=== PATIENT | female | born 1990 | race Caucasian/White ===

== ENCOUNTER 2017-12-26 22:59 | Emergency (ER) | payer OTHER ==
[~2017-12-26] VITALS: Ht 165.1 cm; Wt 88.1 kg
[~2017-12-26 22:59] MED LIST: Micronor,Nor-Q-D,Err PO; Motrin PO; Percocet 5/325,Endoc PO; Tylenol Extra Streng PO
[2017-12-26 23:37] LABS: HEMOGLOBIN 14.4 G/DL (11.9-15.5); MCH 31.9 PG (29.0-34.0); MCHC 34.3 G/DL (30.0-36.0); MCV 92.9 FL (83-99); PLATELET COUNT 171 K/uL (156-360); RBC DIS.WIDTH-CV 12.4 % (11.8-14.6); RBC DIS.WIDTH-SD 42.6 % (39-53); RED BLOOD COUNT 4.52 M/uL (3.80-5.20); WHITE BLOOD COUNT 7.4 K/uL (4.1-10.2)
[2017-12-26 23:49] LABS: ALBUMIN 4.4 g/dL (3.2-4.8)
[2017-12-26 23:50] LABS: CHLORIDE 110 mEq/L (99-109); POTASSIUM 3.6 mEq/L (3.7-5.4); SODIUM 142 mEq/L (136-147)
[2017-12-26 23:52] LABS: GLUCOSE 117 mg/dL (70-99); TOTAL PROTEIN 6.9 g/dL (6.4-8.3)
[2017-12-26 23:54] LABS: TOTAL BILIRUBIN 0.3 mg/dL (0.0-1.0)
[2017-12-26 23:55] LABS: ALKALINE PHOSPHATASE 58 IU/L (3-129)
[2017-12-26 23:56] LABS: CREATININE 0.7 mg/dL (0.6-1.3); GFR ESTIMATE (CALCULATED) > 59 mL/min/
[2017-12-26 23:57] LABS: AST (GOT) 15 IU/L (2-34); UREA NITROGEN (BUN) 8 mg/dL (9-23)
[2017-12-26 23:58] LABS: ALT (GPT) 20 IU/L (3-49)
[2017-12-27 00:08] LABS: QUANTITATIVE HCG < 4.0 MIU/ML
[2017-12-27 02:23] VITALS: BP 105/85
[2017-12-27 02:23] LABS: APPEARANCE CLEAR ((CLEAR)); BILIRUBIN NEGATIVE; BLOOD MODERATE; COLOR YELLOW ((YELLOW)); GLUCOSE (STRIP) NEGATIVE; KETONES NEGATIVE; LEUKOCYTES NEGATIVE; NITRITE NEGATIVE; PROTEIN (STRIP) NEGATIVE; SPECIFIC GRAVITY 1.015 (1.000-1.030); UROBILINOGEN 0.2 MG/DL (0.2-1.0)
[2017-12-27 02:29] LABS: BACTERIA RARE /HPF; EPITHELIAL CELLS RARE /HPF; MUCUS TRACE /LPF; RED BLOOD CELLS 0-5 /HPF (0-5); UCUL ADDED? NO; WHITE BLOOD CELLS 0-5 /HPF (0-5)
== END 2017-12-27 02:24 | disposition home or self-care (01) ==
LOC: EME 22:59
DX: N93.8 Other specified abnormal uterine and vaginal bleeding (principal); F17.200 Nicotine dependence, unspecified, uncomplicated; Z88.0 Allergy status to penicillin
CPT/HCPCS: 76856; 80053; 81003; 84702; 85027; 99281; 99284

== ENCOUNTER 2018-02-09 05:30 | Day surgery (SDC) | payer OTHER ==
[~2018-02-09] VITALS: Ht 165.1 cm; Wt 85.2 kg
[~2018-02-09 05:30] MED LIST changes: +CHANTIX1 MG PO
[2018-02-09 06:10] VITALS: BP 101/62
[2018-02-09 06:30] LABS: HEMOGLOBIN 14.1 G/DL (11.9-15.5); MCV 91.7 FL (83-99)
[2018-02-09] MEDS ORDERED: IBUPROFEN800 MG PO (08:27)
[2018-02-09] MEDS ORDERED: HYDROCODON-ACE1 EAC7 PO (08:27)
[2018-02-09 09:11] VITALS: BP 105/61
[2018-02-09 10:00] VITALS: BP 122/76
== END 2018-02-09 10:00 | disposition home or self-care (01) ==
LOC: SDC 05:30
PROVIDERS: Obstetrics & Gynecology
PROC: 0U574ZZ Destruction of Bilateral Fallopian Tubes, Percutaneous Endoscopic Approach (ICD-10-PCS; principal; 2018-02-09)
DX: Z30.2 Encounter for sterilization (principal); F41.9 Anxiety disorder, unspecified; F17.200 Nicotine dependence, unspecified, uncomplicated
CPT/HCPCS: 81025; 85014; 85018; 86850; 86900; 86901; J0330; J1170; J1885; J2405; J7643